=== PATIENT | female | born 2005 | race African-American/Black ===

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

== ENCOUNTER 2025-01-31 13:06 | Emergency (ER) | payer OTHER ==
[2025-01-31 13:39] LABS: Pregnancy Test - Urine (BHCG) Negative (Negative); Pregu Control Background? CLEAR/WHITE (CLR/WHITE); Pregu Control Bar Appear? YES (CONTROL BAR)
[2025-01-31] MEDS ORDERED: cefTRIAXone (ROCEPHIN) 500 MG VIAL ONE (13:42)
[2025-01-31 13:44] LABS: CAUTI Indications for Culture Dysuria,urgency,freq; Glucose, Urine (Dipstick) Normal (Negative); Leukocyte 25 Leu/uL (Negative); Protein, Urine (Dipstick) 30 mg/dL (Neg-Trace); Specific Gravity, Urine 1.038 (1.002-1.036)
[2025-01-31 13:47] LABS: Bacteria/HPF 1+ HPF (None Seen)
[2025-01-31 13:49] LABS: Urine Culture Reflex Yes Yes
[2025-01-31 21:30] LABS: Chlamydia by PCR, Vaginal Swab Not Detected (NotDetected); GC by PCR, Vaginal Swab Not Detected (NotDetected)
== END 2025-01-31 15:35 | disposition home or self-care (01) ==
LOC: ERS 13:06
DX: N76.0 Acute vaginitis (principal); B96.89 Other specified bacterial agents as the cause of diseases classified elsewhere; R30.0 Dysuria
CPT/HCPCS: 81001; 81025; 87077; 87086; 87480; 87491; 87510; 87591; 87660; 96372; 99283; J0696